=== PATIENT | female | born 1960 | race Caucasian/White ===

== ENCOUNTER 2021-09-16 12:37 | Outpatient (REF) | payer OTHER, SELFPAY ==
--- NOTE | ~2021-09-16 | MR_ITS ---
EXAMINATION: MR CERVICAL SPINE WITHOUT CONTRAST CLINICAL INFORMATION: Spondylosis. Stenosis. Cord compression. Migraines. COMPARISON: None available. TECHNIQUE: MRI of the cervical spine was performed using routine sequences without contrast. FINDINGS: The cervical vertebral bodies maintain normal heights and alignment. There is mild multilevel disc height loss. The cord signal appears normal. The spinal canal is capacious. The imaged portions of the intracranial contents appear normal. The extraspinal soft tissues appear normal. SPINAL LEVELS: C2-C3: No posterior disc abnormality. Moderate right facet arthropathy.. No spinal canal or neural foraminal stenosis. C3-C4: No posterior disc abnormality. No spinal canal or neural foraminal stenosis. C4-C5: No posterior disc abnormality. Mild to moderate left and mild right facet arthropathy No spinal canal or neural foraminal stenosis. C5-C6: Disc osteophyte complex with uncovertebral hypertrophy resulting in severe right and moderate left neural foraminal stenosis but no spinal canal stenosis. Mild right and moderate left facet arthropathy. C6-C7: No posterior disc abnormality. Moderate left and mild right facet arthropathy. No spinal canal or neural foraminal stenosis. C7-T1: No posterior disc abnormality. No spinal canal or neural foraminal stenosis. MR/MR cervical spine wo con IMPRESSION: Mild multilevel degenerative spondylosis. Spinal canal is capacious without narrowing. At C5-C6 there is severe right and moderate left neural foraminal stenosis.
== END 2021-09-16 12:38 | disposition home or self-care (01) ==
LOC: HO.MRI 12:37
PROVIDERS: Visit Provider Psychiatry & Neurology Neurology
DX: M50.90 Cervical disc disorder, unspecified, unspecified cervical region (principal)
CPT/HCPCS: 72141

== ENCOUNTER 2025-05-06 12:14 | Outpatient (AMB) | payer MEDICARE, OTHER, SELFPAY ==
--- NOTE | 2025-05-06 12:15 | MHC.OFFVIS ---
Intake Visit Reasons: 6 WEEKS MIGRAINE Allergies No Known Allergies Allergy (Verified 05/06/25 12:23) Medication List - Last Reconciled 05/06/25 by Margret Calhoun CNP aripiprazole 2 mg PO DAILY clonazepam (Klonopin) 0.5 mg PO BEDTIME oxycodone-acetaminophen 5-325 mg 1 tab PO Q6H sumatriptan succinate (Imitrex) take 1 tab at onset of headache; if no relief, may repeat 1 tab after at least 2 hrs; max = 2 tabs/24 hrs PO topiramate (Topamax) 50 mg PO TID venlafaxine ER (Effexor XR) 75 mg PO DAILY verapamil ER 240 mg PO DAILY HPI Comments Details: Mood was better with Abilify 2mg. Noticed improvement after about 1 week and felt like a cloud lifted, less depressed. More motived, cooking, baking, and going to store. Doing activities she enjoyed in the past like getting dinner with friends. Some increased appetite, otherwise no significant side effects. Anxiety was about the same. Sleep was okay, uses melatonin as needed. Migraines were about the same. Had about 14 migraines this month and had to take 17 as needed pills. Ubrelvy as needed was no longer helping and she stopped taking medication was not helping. Using sumatriptan and Percocet as needed which help. She was feeling more depressed and anxious in spring/early summer 2024. Not motivated, had to push herself to leave the house to grocery shop. Sleep was up and down. Hard time calming her mind, always having a lot of thoughts, overthinking, and worrying. She was taking clonazepam infrequently as medication made her drowsy. She was not taking hydroxyzine as medication took a long time to work and she felt drowsy the next day. She tried Abilify in the past, which she thought helped, but dose may have been too high as she felt restless after taking it for some time. She wanted to try medication again. No SI plan. In 01/2025, she had 13 headaches and had to use 15 pills total between sumatriptan and Ubrelvy. In 02/2025, she had 17 headaches and had to use 19 pills total between sumatriptan and Ubrelvy. Ubrelvy worked very well some of the time, and other times it did not work at all. Also uses Percocet as needed. Averaging 12-15+ migraines/month. Had 17 migraines in 09/2024. Initially, Ubrelvy helped and worked better than sumatriptan, and did not have to use sumatriptan for 7 days afterward. Shaking and dry mouth is better since stopping paroxetine. . Uses Percocet or sumatriptan as needed depending on migraine severity which help, but occasionally will need to repeat dose of sumatriptan. No triggers identified. More depressed and anxious, worse since passed in 06/2023. Does not like to leave house and would rather be by herself. Tried Ability and sertraline in the past. Migraines have not responded to any treatments over the years and continue at the same frequency. Gets some neck and shoulder pain with migraines. Stress and anxiety. Hydroxyzine as needed helps, but causes some drowsiness. Uses clonazepam as needed on rare occasion. Faily prophylactics including Botox, Emgality, Aimovig, topiramate, propranolol, amitriptyline, Nurtec qod, and Quilpta (helped but caused constipation). [facility] Medical History (Updated 05/06/25 @ 12:22 by Margret Calhoun CNP) Depression with anxiety Familial tremor Anxiety Cervical disc disease Hypertension Migraine headache with aura Antebrachial cutaneous nerve injury, lateral Depression Family History (Updated 05/06/25 @ 12:44 by Margret Calhoun CNP) Mother Tremor Migraine Review of Systems Const Denies chills, Denies daytime sleepiness, Reports difficulty sleeping, Denies fatigue, Denies fever(s), Denies frequent falls, Reports headache(s), Denies increased appetite, Denies poor appetite, Denies snoring, Denies weakness, Denies weight gain and Denies weight loss Eyes Denies loss of vision ENT Denies vertigo, Denies dizziness, Reports headache(s) and Denies neck pain Card Denies chest pain at rest, Denies chest pain with activity, Denies syncope, Denies leg edema, Denies palpitations, Denies dyspnea and Denies dyspnea on exertion Resp Denies cough, Denies dyspnea, Denies dyspnea on exertion and Denies snoring GI Denies abdominal pain, Denies constipation, Denies heartburn, Denies diarrhea and Denies nausea Denies urinary frequency, Denies urinary incontinence and Denies urinary urgency Musc Denies abnormal gait, Denies back pain, Denies myalgias, Denies arthralgias, Denies neck pain, Denies numbness and Denies tingling Neuro Denies abnormal gait, Denies vertigo, Denies dizziness, Denies syncope, Denies frequent falls, Reports headache(s), Denies lack of coordination, Denies loss of vision, Denies memory loss, Denies numbness, Denies Other visual disturbances, Denies restless legs, Denies seizure-like activity, Denies tingling, Denies paresthesias, Reports tremor(s) and Denies weakness Psych Reports anxiety, Reports depression, Denies auditory hallucinations, Denies memory loss, Denies visual hallucinations, Denies homicidal ideation and Denies suicidal ideation Endo Denies fatigue and Denies palpitations Physical Exam Const Other: General Appearance:? normal, in no acute distress. Heart:? S1, S2 normal, no murmurs. Lungs:? clear anteriorly and posteriorly. Musculoskeletal:? normal. Extremities:? no edema. Psych:? alert, oriented, cognitive function intact, cooperative with exam. Neuro Other: Abnormal Neurological Findings:?Mild hand tremors on sustained posture. Mental Status: alert and oriented X 3. Normal attention, orientation, memory, and affect. Cranial Nerves: Pupils are equal, round, and reactive to light. External ocular muscles are intact. Visual quinonez are full, no ptosis. Face is symmetrical, no facial weakness or droop. Facial sensations are normal. Tongue protrudes in midline. Palate elevates symmetrically. Shoulder shrugging is normal Motor Examination: Normal muscle tone, bulk and strength. No atrophy or fasciculations. No drift of the extended upper extremities. DTR 2+. Plantars are flexor. Straight Leg Raisin degrees. Sensory Exam: Normal light touch, temperature, pinprick, vibration, and joint-position sensations. Rhomberg sign is absent. Coordination: No ataxia. No titubation. Xgqqib-gg-xvni, ukks-iwcx-sirh test, and rapid alternating movements were normal. Gait Exam: Within normal limits. Cerebellar Signs: Bbuidk-ex-kgna and ahpb-do-alww is normal. No dysdiadochokinesia. Extrapyramidal System: No tremor, rigidity with normal facial expressions. No bradykinesia. No bradyphrenia. Normal arm swing and posture. No propulsion or retropulsion. Speech: Normal. No dysphasia or dysarthria. Assessment & Plan Assessment & Plan (1) Migraine: Code(s): G43.909 - Migraine, unspecified, not intractable, without status migrainosus Category: Medical Qualifiers: Migraine type: chronic migraine (15 or more days per month) without aura Status migrainosus presence: without status migrainosus Intractability: not intractable Qualified Code(s): G43.709 - Chronic migraine without aura, not intractable, without status migrainosus Plan: Continue topiramate 50mg 1 tablet three times a day Continue verapamil ER 240mg 1 capsule daily Continue Effexor XR 75mg 1 capsule with food daily Continue sumatriptan 100mg 1 tablet as needed for migraine Continue Percocet 5-325mg 1 tablet as needed q6h for migraine #60 for 30 days (2) Depression with anxiety: Code(s): F41.8 - Other specified anxiety disorders Category: Medical Plan: Continue Abilify 2mg 1 tablet daily (3) Anxiety: Code(s): F41.9 - Anxiety disorder, unspecified Category: Medical Plan: Continue clonazepam 0.5mg 1 tablet as needed daily (4) Familial tremor: Code(s): G25.0 - Essential tremor Category: Medical Plan: No functional impairment. Plan For migraine, failed prophylactics including: Botox, Emgality, Aimovig, Nurtec qod, Qulipta (side effects), verapamil, topiramate, propranolol, amitriptyline, Effexor Meds tried for anxiety: Sertraline, paroxetine, hydroxyzine, clonazepam, abilify Medications: New oxycodone-acetaminophen 5-325 mg (Percocet) Partial Fill upon patient request. 1 tab PO Q6H PRN 60 tabs 0RF pain 30 days aripiprazole (Abilify) 2 mg PO DAILY 90 tabs 1RF 90 days Discontinued aripiprazole Discontinued Reason: Order 2 mg PO DAILY oxycodone-acetaminophen 5-325 mg Discontinued Reason: Order 1 tab PO Q6H 0RF Coding Level of Care Code Est Pt Level 4 (57810) Diagnoses Chronic migraine without aura without status migrainosus, not intractable G43.709 Migraine type: chronic migraine (15 or more days per month) without aura Status migrainosus presence: without status migrainosus Intractability: not intractable Depression with anxiety F41.8 Anxiety F41.9 Familial tremor G25.0
--- OUTSIDE RECORDS SUMMARY | 2025-05-06 13:06 | XMS_ITS | Clinical Summary ---
Author Organization [facility] [address] Address [address] [place] [address] Phone Care Team Providers Care Supervisor [employer] Maintenance Name Role Phone Unavailable Primary Care Provider Unavailabl e Allergies Active Allergy Reactions Criticality Noted Date Comments Adhesive Tape-Silicones 12/18/2024 Medications Qulipta 60 mg tablet Take 1 tablet by mouth 1 (one) time each day. 04/29/2024 Active oxyCODONE-aceta minophen (PERCOCET) 5-325 mg per tablet TAKE 1 TABLET BY MOUTH EVERY 6 HOURS FOR 02/18/2025 Active PARoxetine (PAXIL) 10 mg tablet Take 1 tablet (10 mg total) by mouth 1 (one) time each day in the morning. 10/03/2024 Active GaviLyte-C 240-22.72-6.72 -5.84 gram solution MIX AND TAKE 240ML BY MOUTH EVERY 10-15 MINUTES 12/18/2024 Active Encounters Date Type Department Care Team Description 03/20/2025 11:20 AM EDT Office Visit Gastroenterology - [facility] [address] [facility] [address] [place] [id number] Yessy Slater NP Constipation, unspecified constipation type (Primary Dx); Slow transit constipation 02/10/2025 11:38 AM EDT - 02/10/2025 11:59 PM EDT Hospital Encounter [facility] Xray [address] [place] [address] Slow transit constipation Discharge Disposition: Home or Self Care 02/10/2025 Telephone Gastroenterology - [address] [place] [address] Yessy Slater NP 02/04/2025 11:00 AM EDT Office Visit Gastroenterology - [address] [place] [address] Yessy Slater NP Slow transit constipation (Primary Dx) from Last 3 Months Social History Tobacco Use Types Packs/Day Years Used Date Smoking Tobacco: Never Assessed Comments Unknown Sex and Gender Information Value Date Recorded Sex Assigned at Not on file Legal Sex Female 1:45 PM EST Gender Identity Not on file Sexual Orientation Not on file Last Filed Vital Signs Vital Sign Reading Time Taken Comments Blood Pressure - - Pulse - - Temperature - - Respiratory Rate - - Oxygen Saturation - - Inhaled Oxygen Concentration - - Weight 57.2 kg (126 lb) 03/20/2025 11:18 AM EDT Height 157.5 cm (5' 2 ) 03/20/2025 11:18 AM EDT Body Mass Index 23.05 03/20/2025 11:18 AM EDT Plan of Treatment Health Maintenance Due Date Last Done Comments Breast Cancer Screening 1960 DTaP,Tdap,and Td Vaccines (1 - Tdap) 1977 Pneumococcal Vaccine: 50+ Ye ars (1 of 1 - PCV) 2008 Zoster Vaccines (1 of 2) 2008 COVID-19 Vaccine (1 - 2023-2 5 season) 2024 Depression Screening 10/09/2024 Colorectal Cancer Screening: Colonoscopy 11/21/2024 Falls Risk Assessment 11/21/2024 Hepatitis C Screening 11/21/2024 Medicare Annual Wellness Visit 11/21/2024 Osteoporosis Screening (Bone Density Screening) 11/21/2024 Social Influencers of Health Screening 11/21/2024 Influenza Vaccine (#1) 2025 RSV Immunization Adult Patie nts (1 - 1-dose 75+ series) 2033 HIB Vaccines Aged Out No longer eligi ble based on patient's age to complete this topic HPV Vaccines Aged Out No longer eligi ble based on patient's age to complete this topic Hepatitis A Vaccines Aged Out No long er eligible based on patient's age to complete this topic Hepatitis B Vaccines Aged Out No long er eligible based on patient's age to complete this topic IPV Vaccines Aged Out No longer eligi ble based on patient's age to complete this topic MMR Vaccines Aged Out No longer eligi ble based on patient's age to complete this topic Meningococcal ACWY Vaccine Aged Out N o longer eligible based on patient's age to complete this topic Meningococcal B Vaccine Aged Out No l onger eligible based on patient's age to complete this topic RSV Immunization Patients Un james 20 months Aged Out No longer eligible b ased on patient's age to complete this topic Varicella Vaccines Aged Out No longer eligible based on patient's age to complete this topic Procedures Procedure Name Priority Date/Time Associated Diagnosis Comments XR ABDOMEN 1 VIEW Routine 02/10/2025 11: 48 AM EDT Slow transit constipation from Last 3 Months Results * XR Abdomen 1 View (02/10/2025 11:48 AM EDT) Anatomical Region Laterality Modality Body Radiographic Cristina ging 02/10/2025 11:5 2 AM EDT Impressions 02/10/2025 11:59 AM EDT 20 Sitzmarks (83% assuming 24 markers were in the capsule) have passed on day 5, indicating normal colonic motility. However, a moderate amount of fecal material is present in the colon consistent with moderate constipation. Code 25098 -------- FINAL REPORT -------- Dictated By: Al Field Dictated Date: 02/10/2025 11:52 ET Assigned Physician: Al Field Reviewed and Electronically Signed By: Al Field Signed Date: 02/10/2025 11:59 ET Workstation ID: [id number] Transcribed By: Self Edit Transcribed Date: 02/10/2025 11:52 ET Narrative 02/10/2025 11:59 AM EDT HISTORY: The patient is a 64-year-old female with provided history states that this is day 5 is a Sitzmarks test. However, no the one image has been performed at this institution and therefore the number of markers in the capsule is not documented by imaging. FINDINGS: AP radiograph of the abdomen demonstrate mild degenerative change of the lumbar spine. The bowel gas pattern is nonobstructive. 1 Sitzmark this present in the proximal descending colon, one Sitzmark is in the sigmoid colon, and 2 Sitzmarks are in the rectum. Assuming that 24 markers were in the capsule, this indicates that 20 Sitzmarks (83%) have passed, indicating normal colonic motility. A moderate amount of fecal material is present in the colon from the cecum to the rectum consistent with mild to moderate constipation. Procedure Note Al Field MD - 02/10/2025 HISTORY: The patient is a 64-year-old female with provided history statesthat this is day 5 is a Sitzmarks test. However, no the one image has beenperformed at this institution and therefore the number of markers in thecapsule is not documented by imaging. FINDINGS: AP radiograph of the abdomen demonstrate mild degenerativechange of the lumbar spine. The bowel gas pattern is nonobstructive. 1Sitzmark this present in the proximal descending colon, one Sitzmark is inthe sigmoid colon, and 2 Sitzmarks are in the rectum. Assuming that 24markers were in the capsule, this indicates that 20 Sitzmarks (83%) havepassed, indicating normal colonic motility. A moderate amount of fecalmaterial is present in the colon from the cecum to the rectum consistentwith mild to moderate constipation. IMPRESSION: 20 Sitzmarks (83% assuming 24 markers were in the capsule) have passed onday 5, indicating normal colonic motility. However, a moderate amount offecal material is present in the colon consistent with moderateconstipation. Code 14906 -------- FINAL REPORT -------- Dictated By: Al Field Dictated Date: 02/10/2025 11:52 ET Assigned Physician: Al Field Reviewed and Electronically Signed By: Al Field Signed Date: 02/10/2025 11:59 ET Workstation ID: [id number] Transcribed By: Self Edit Transcribed Date: 02/10/2025 11:52 ET us Yessy Slater RETAIL ACCOUNT REPRESENTATIVE IMG XR PROCEDURES Final Resul t from Last 3 Months Insurance MEDICARE [facility]
== END 2025-05-06 12:38 | disposition home or self-care (01) ==
LOC: HO.HSM 12:14
PROVIDERS: PCP Internal Medicine; Visit Provider Registered Nurse
DX: G43.709 Chronic migraine without aura, not intractable, without status migrainosus (principal); F41.8 Other specified anxiety disorders; F41.9 Anxiety disorder, unspecified; G25.0 Essential tremor
CPT/HCPCS: 99214

== ENCOUNTER → 2025-05-06 12:14 | Outpatient (BNVA) | payer MEDICARE, OTHER, SELFPAY | PROVIDERS: PCP Internal Medicine; Visit Provider Registered Nurse | DX: G43.709 Chronic migraine without aura, not intractable, without status migrainosus (principal); F41.8 Other specified anxiety disorders; G25.0 Essential tremor | CPT/HCPCS: 99212 ==

== ENCOUNTER 2025-08-06 11:56 | Outpatient (AMB) | payer MEDICARE, OTHER, SELFPAY ==
--- NOTE | 2025-08-06 12:17 | A.OFFVIS_ITS ---
Intake Visit Reasons: 3m TSAI Allergies No Known Allergies Allergy (Verified 08/06/25 12:22) Medication List - Last Reconciled 08/06/25 by Margret Calhoun CNP aripiprazole (Abilify) 2 mg PO DAILY 90 days clonazepam (Klonopin) 0.5 mg PO BEDTIME oxycodone-acetaminophen 5-325 mg (Percocet) 1 tab PO Q6H PRN 30 days sumatriptan succinate (Imitrex) take 1 tab at onset of headache; if no relief, may repeat 1 tab after at least 2 hrs; max = 2 tabs/24 hrs PO topiramate (Topamax) 50 mg PO TID venlafaxine ER (Effexor XR) 75 mg PO DAILY verapamil ER 240 mg PO DAILY HPI Comments Details: In 05/2025, she had 10 bad headache days and took 12 sumatriptan total. In 06/2025, she had 14 bad headache days and took 14 sumatriptan total. This month so far, she has had 16 bad headaches and had to take 19 sumatriptan total. Occasionally, she has to repeat dose of sumatriptan. She was having some ongoing neck pain and stiffness that started after doing some yard work earlier this month. She thinks neck pain may be trigger for headaches. Sleep was so-so. She was feeling a bit restless with Abilify 2mg and decreased dose to 1mg a few weeks ago, restlessness better and tremors are less. No functional impairment. Mood was so-so. Considering psychiatrist and has name of provider from PCP if she decides she is interested. Noticed improvement in mood with Abilify after about 1 week, less depressed and more motived. Had about 14 migraines in 04/2025 and had to take 17 as needed pills. Using sumatriptan and Percocet as needed which help. Ubrelvy as needed was no longer helping and she stopped taking medication. She was feeling more depressed and anxious in spring/early summer 2024. Not motivated, had to push herself to leave the house to grocery shop. Sleep was up and down. Hard time calming her mind, always having a lot of thoughts, overthi nking, and worrying. She was taking clonazepam infrequently as medication made her drowsy. She was not taking hydroxyzine as medication took a long time to work and she felt drowsy the next day. She tried Abilify in the past, which she thought helped, but dose may have been too high as she felt restless after taking it for some time. She wanted to try medication again. No SI plan. In 01/2025, she had 13 headaches and had to use 15 pills total between sumatriptan and Ubrelvy. In 02/2025, she had 17 headaches and had to use 19 pills total between sumatriptan and Ubrelvy. Ubrelvy worked very well some of the time, and other times it did not work at all. Also uses Percocet as needed. Averaging 12-15+ migraines/month. Had 17 migraines in 09/2024. Initially, Ubrelvy helped and worked better than sumatriptan, and did not have to use sumatriptan for 7 days afterward. Shaking and dry mouth is better since stopping paroxetine. . Uses Percocet or sumatriptan as needed depending on migraine severity which help, but occasionally will need to repeat dose of sumatriptan. No triggers identified. More depressed and anxious, worse since passed in 06/2023. Does not like to leave house and would rather be by herself. Tried Ability and sertraline in the past. Migraines have not responded to any treatments over the years and continue at the same frequency. Gets some neck and shoulder pain with migraines. Stress and anxiety. Hydroxyzine as needed helps, but causes some drowsiness. Uses clonazepam as needed on rare occasion. Faily prophylactics including Botox, Emgality, Aimovig, topiramate, propranolol, amitriptyline, Nurtec qod, and Quilpta (helped but caused constipation). [facility] Medical History (Updated 05/06/25 @ 12:22 by Margret Calhoun CNP) Depression with anxiety Familial tremor Anxiety Cervical disc disease Hypertension Migraine headache with aura Antebrachial cutaneous nerve injury, lateral Depression Family History (Updated 05/06/25 @ 12:44 by Margret Calhoun CNP) Mother Tremor Migraine Review of Systems Const Denies chills, Denies daytime sleepiness, Reports difficulty sleeping, Denies fatigue, Denies fever(s), Denies frequent falls, Reports headache(s), Denies increased appetite, Denies poor appetite, Denies snoring, Denies weakness, Denies weight gain and Denies weight loss Eyes Denies loss of vision ENT Denies vertigo, Denies dizziness, Reports headache(s) and Denies neck pain Card Denies chest pain at rest, Denies chest pain with activity, Denies syncope, Denies leg edema, Denies palpitations, Denies dyspnea and Denies dyspnea on exertion Resp Denies cough, Denies dyspnea, Denies dyspnea on exertion and Denies snoring GI Denies abdominal pain, Denies constipation, Denies heartburn, Denies diarrhea and Denies nausea Denies urinary frequency, Denies urinary incontinence and Denies urinary urgency Musc Denies abnormal gait, Denies back pain, Denies myalgias, Denies arthralgias, Denies neck pain, Denies numbness and Denies tingling Neuro Denies abnormal gait, Denies vertigo, Denies dizziness, Denies syncope, Denies frequent falls, Reports headache(s), Denies lack of coordination, Denies loss of vision, Denies memory loss, Denies numbness, Denies Other visual disturbances, Denies restless legs, Denies seizure-like activity, Denies tingling, Denies paresthesias, Reports tremor(s) and Denies weakness Psych Reports anxiety, Reports depression, Denies auditory hallucinations, Denies memory loss, Denies visual hallucinations, Denies homicidal ideation and Denies suicidal ideation Endo Denies fatigue and Denies palpitations Physical Exam Const Other: General Appearance:? normal, in no acute distress. Heart:? S1, S2 normal, no murmurs. Lungs:? clear anteriorly and posteriorly. Musculoskeletal:? normal. Extremities:? no edema. Psych:? alert, oriented, cognitive function intact, cooperative with exam. Neuro Other: Abnormal Neurological Findings:?Mild hand tremors on sustained posture. Mental Status: alert and oriented X 3. Normal attention, orientation, memory, and affect. Cranial Nerves: Pupils are equal, round, and reactive to light. External ocular muscles are intact. Visual quinonez are full, no ptosis. Face is symmetrical, no facial weakness or droop. Facial sensations are normal. Tongue protrudes in midline. Palate elevates symmetrically. Shoulder shrugging is normal Motor Examination: Normal muscle tone, bulk and strength. No atrophy or fasciculations. No drift of the extended upper extremities. DTR 2+. Plantars are flexor. Sensory Exam: Normal light touch, temperature, pinprick, vibration, and joint- position sensations. Rhomberg sign is absent. Coordination: No ataxia. No titubation. [id number], [id number] test, and rapid alternating movements were normal. Gait Exam: Within normal limits. Cerebellar Signs: [id number] is okay. Extrapyramidal System: Tremor as above. No rigidity with normal facial expressions. No bradykinesia. No bradyphrenia. Normal arm swing and posture. No propulsion or retropulsion. Speech: Normal. Assessment & Plan Assessment & Plan (1) Migraine: Code(s): G43.909 - Migraine, unspecified, not intractable, without status migrainosus Category: Medical Qualifiers: Migraine type: chronic migraine (15 or more days per month) without aura Status migrainosus presence: without status migrainosus Intractability: not intractable Qualified Code(s): G43.709 - Chronic migraine without aura, not intractable, without status migrainosus Plan: Start cyclobenzaprine 5mg 1 tablet at bedtime as needed for muscle spasm/pain, use/side effects reviewed. Continue topiramate 50mg 1 tablet three times a day. Continue verapamil ER 240mg 1 capsule daily. Continue Effexor XR 75mg 1 capsule with food daily. Continue sumatriptan 100mg 1 tablet as needed for migraine. Continue Percocet 5-325mg 1 tablet as needed q6h for migraine #60 for 30 days (2) Depression with anxiety: Code(s): F41.8 - Other specified anxiety disorders Category: Medical Plan: Decrease Abilify 2mg 1/2 tablet daily. (3) Anxiety: Code(s): F41.9 - Anxiety disorder, unspecified Category: Medical Plan: Continue clonazepam 0.5mg 1 tablet as needed daily (4) Familial tremor: Code(s): G25.0 - Essential tremor Category: Medical Plan: No functional impairment. Plan For migraine, failed prophylactics including: Botox, Emgality, Aimovig, Nurtec q od, Qulipta (side effects), verapamil, topiramate, propranolol, amitriptyline, Effexor Meds tried for anxiety: Sertraline, paroxetine, hydroxyzine, clonazepam, abilify Medications: New cyclobenzaprine 5 mg PO BEDTIME 30 tabs 1RF 30 days Changed From aripiprazole (Abilify) 2 mg PO DAILY 90 days 90 tabs 1RF To aripiprazole (Abilify) 1 mg (1/2 x 2 mg) PO DAILY 45 tabs 3RF 90 days From verapamil ER 240 mg PO DAILY To verapamil ER 240 mg PO DAILY 90 caps 3RF 90 days From topiramate (Topamax) 50 mg PO TID To topiramate (Topamax) 50 mg PO TID 270 tabs 3RF 90 days From sumatriptan succinate (Imitrex) take 1 tab at onset of headache; if no relief, may repeat 1 tab after at least 2 hrs; max = 2 tabs/24 hrs PO To sumatriptan succinate (Imitrex) take 1 tab at onset of headache; if no relief, may repeat 1 tab after at least 2 hrs; max = 2 tabs/24 hrs PO 27 tabs 3RF 90 days From venlafaxine ER (Effexor XR) 75 mg PO DAILY To venlafaxine ER (Effexor XR) 75 mg PO DAILY 90 caps 3RF 90 days Coding Level of Care Code Est Pt Level 4 (90395) Diagnoses Chronic migraine without aura without status migrainosus, not intractable G43.709 Migraine type: chronic migraine (15 or more days per month) without aura Status migrainosus presence: without status migrainosus Intractability: not intractable Depression with anxiety F41.8 Anxiety F41.9 Familial tremor G25.0
--- OUTSIDE RECORDS SUMMARY | 2025-08-06 15:24 | XMS_ITS | Clinical Summary ---
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 Role Phone Unavailable Primary Care Provider [...] BY MOUTH EVERY 10-15 MINUTES 12/18/2024 Active Social History Tobacco Use Types Packs/Day Years [...] Last Done Comments Breast Cancer Screening 1960 Colorectal Cancer Screening: Colonoscopy 1958 DTaP,Tdap,and Td Vaccines (1 - Tdap) 1977 Pneumococcal Vaccine: 50+ Ye ars (1 of 1 - PCV) 2008 Zoster Vaccines (1 of 2) 2008 Depression Screening 10/09/2024 Falls Risk Assessment 11/21/2024 Hepatitis C Screening 11/21/2024 Medicare Annual Wellness Visit 11/21/2024 Osteoporosis Screening (Bone Density Screening) 11/21/2024 Social Influencers of Health Screening 11/21/2024 COVID-19 Vaccine ( - 2023-2 5 season) 2025 Influenza Vaccine (#1) 2025 RSV Immunization Adult [...] on patient's age to complete this topic Insurance MEDICARE [facility]
== END 2025-08-06 12:39 | disposition home or self-care (01) ==
LOC: HO.HSM 11:58
PROVIDERS: PCP Internal Medicine; Visit Provider Registered Nurse
DX: G43.709 Chronic migraine without aura, not intractable, without status migrainosus (principal); F41.8 Other specified anxiety disorders; F41.9 Anxiety disorder, unspecified; G25.0 Essential tremor
CPT/HCPCS: 99214

== ENCOUNTER → 2025-08-06 11:56 | Outpatient (BNVA) | payer MEDICARE, OTHER, SELFPAY | PROVIDERS: PCP Internal Medicine; Visit Provider Registered Nurse | DX: G43.709 Chronic migraine without aura, not intractable, without status migrainosus (principal); F41.8 Other specified anxiety disorders; G25.0 Essential tremor; Z79.899 Other long term (current) drug therapy | CPT/HCPCS: 99212 ==